=== PATIENT | female | born 1970 | race African-American/Black ===

== ENCOUNTER 2025-05-06 13:07 | Emergency (ER) | payer OTHER ==
[2025-05-06 13:19] VITALS: TEMP 98.3; BMI 25.7
[2025-05-06] MEDS ORDERED: ASPIRIN 81 MG CHEWABLE TABLETS ONE (14:02)
[2025-05-06] MEDS: ASPIRIN 81 MG CHEWABLE TABLETS PO ONE (14:04)
[2025-05-06 14:32] LABS: ABSOLUTE IMMATURE GRANULOCYTES 0.01 x10^3/uL (0.0-0.031); BASOPHILS # 0.02 x10^3/uL (0.01-0.08); EOSINOPHIL % 1.2 % (0.7-5.8); EOSINOPHILS # 0.07 x10^3/uL (0.04-0.36); MCHC 32.5 g/dl (32.2-35.5); MEAN CELL VOLUME 88.2 fl (79.4-94.8); MEAN PLT VOLUME 14.3 fl (9.4-12.3); MONOCYTE # 0.57 x10^3/uL (0.24-0.86); MONOCYTE % 9.6 % (4.7-12.5); RDW 12.8 % (12.3-16.6)
[2025-05-06 14:38] LABS: INR 1.05 (0.83-1.09); PROTHROMBIN TIME (PATIENT) 11.5 SEC (9.7-13.0)
[2025-05-06 14:39] LABS: GLUCOSE,RANDOM 86.0 mg/dL (74-106)
[2025-05-06 14:40] LABS: TOT PROT 7.4 g/dl (6.4-8.2)
[2025-05-06 14:41] LABS: ACTIVATED PTT 31.9 SECONDS (25.2-36.5); CO2 29.0 mmol/L (21-32)
[2025-05-06 14:42] LABS: ALK PHOS 92.0 U/L (40-150)
[2025-05-06 14:45] LABS: CREATININE 0.68 mg/dL (0.55-1.3); SGOT/AST 20.0 U/L (5-34); SGPT/ALT 22.0 U/L (0-55)
[2025-05-06 15:11] LABS: HIV INTERPRETATION NEGATIVE (NEGATIVE)
[2025-05-06] MEDS: KETOROLAC TROMETHAMINE 15 MG/ML VIAL IM ONE (15:47)
[2025-05-06] MEDS ORDERED: KETOROLAC TROMETHAMINE 15 MG/ML VIAL ONE (15:49)
[2025-05-06] MEDS: KETOROLAC TROMETHAMINE 15 MG/ML VIAL IVPUSH ONE (15:58)
[2025-05-06 16:04] VITALS: BP 123/88; PULSE 65; RESP 15
[2025-05-07 18:37] LABS: HCV DIAGNOSTIC IN-HOUSE W/RFLX NON-REACTIVE (NONREACTIVE)
== END 2025-05-06 16:04 | disposition home or self-care (01) ==
LOC: JER 13:07
PROC: 3E0333Z Introduction of Anti-inflammatory into Peripheral Vein, Percutaneous Approach (ICD-10-PCS; principal; 2025-05-06)
DX: R07.89 Other chest pain (principal); R42 Dizziness and giddiness; R00.2 Palpitations; R61 Generalized hyperhidrosis; R20.2 Paresthesia of skin; R11.0 Nausea; K59.00 Constipation, unspecified; R14.0 Abdominal distension (gaseous); R10.84 Generalized abdominal pain; R51.9 Headache, unspecified; M54.6 Pain in thoracic spine; M25.512 Pain in left shoulder
CPT/HCPCS: 36415; 71045-TC-FY; 80053; 83735; 84484; 85025; 85610; 85730; 86803; 86850; 86900; 86901; 87389; 93005; 93010; 96374; 99285-25